=== PATIENT | male | born 2000 | race Caucasian/White ===

== ENCOUNTER 2019-07-26 14:01 | Emergency (ER) | payer BC ==
[2019-07-26 14:10] VITALS: BP 117/62; PULSE 88; RESP 18; TEMP 97.6
[2019-07-26] MEDS ORDERED: IBUPROFEN 600 MG TAB PO STA (14:22)
--- NOTE | 2019-07-26 14:38 | ED ---
General Adult HPI - General Chief complaint: Extremity Injury, Lower Stated complaint: Ankle injury Time Seen by Provider: 07/26/19 14:13 Source: patient, RN notes reviewed Mode of arrival: wheelchair Limitations: no limitations - History of Present Illness Initial comments: 19-year-old male presents to the emergency department for a chief complaint of ankle injury. Patient was playing basketball when he jumped up and landed his foot onto another player's foot. States he twisted his ankle. States he has a lot of swelling to the ankle and is concerned there might be a fracture. Denies any knee pain. Denies any foot pain.Patient has no other complaints at this time including shortness of breath, chest pain, abdominal pain, nausea or vomiting, headache, or visual changes. - Related Data Allergies Allergy/AdvReac Type Severity Reaction Status Date / Time No Known Allergies Allergy Verified 07/26/19 14:10 Review of Systems ROS Statement: Those systems with pertinent positive or pertinent negative responses have been documented in the HPI. ROS Other: All systems not noted in ROS Statement are negative. Past Medical History Past Medical History: No Reported History History of Any Multi-Drug Resistant Organisms: None Reported Past Surgical History: No Surgical Hx Reported Past Psychological History: No Psychological Hx Reported Smoking Status: Never smoker Past Alcohol Use History: None Reported Past Drug Use History: None Reported General Exam Limitations: no limitations General appearance: alert, in no apparent distress Head exam: Present: atraumatic, normocephalic, normal inspection Eye exam: Present: normal appearance, PERRL, EOMI. Absent: scleral icterus, conjunctival injection, periorbital swelling ENT exam: Present: normal exam, mucous membranes moist Neck exam: Present: normal inspection, full ROM. Absent: tenderness, meningismus, lymphadenopathy Respiratory exam: Present: normal lung sounds bilaterally. Absent: respiratory distress, wheezes, rales, rhonchi, stridor Cardiovascular Exam: Present: regular rate, normal rhythm, normal heart sounds. Absent: systolic murmur, diastolic murmur, rubs, gallop, clicks Extremities exam: Present: tenderness (There is tenderness noted of the lateral malleolus. No medial malleolus tenderness. No fifth metatarsal or navicular tenderness.), normal capillary refill (Capillary refill less than 2 seconds, DP pulse 2+ in the right lower extremity.), joint swelling (Patient has moderate localized edema of the lateral malleolus.), other (Sensation is intact in the right lower extremity.). Absent: full ROM (Patient has limited plantar and dorsiflexion secondary to pain of the right ankle. Patient is able to move all toes.), pedal edema, calf tenderness Course Vital Signs 07/26/19 14:07 Temperature 97.6 F Pulse Rate 88 Respiratory 18 Rate Blood Pressure 117/62 O2 Sat by Pulse 97 Oximetry Medical Decision Making - Medical Decision Making Neurovascular status is intact in the right lower extremity. Patient was initially unable to dorsi and plantar flex the right ankle due to pain. However was given Motrin and is now able to dorsi and plantar flex the right ankle. These mechanisms are intact. Sensation is intact. DP pulse is 2+. X-ray of the right foot and ankle shows mild soft tissue swelling. No acute fractures. Facet patient that if he continues to have pain after 7-10 days he may need repeat x-rays. Discussed Motrin and Tylenol for pain and swelling and rice therapy. Aircast was applied. Patient has crutches with him. He will follow up with orthopedics in one to 2 days and return if he has any worsening symptoms. Disposition Clinical Impression: Right ankle sprain Disposition: HOME SELF-CARE Condition: Good Instructions (If sedation given, give patient instructions): Ankle Sprain (ED) Additional Instructions: Please take Motrin and Tylenol for pain. Rest ice and elevate the right ankle. Use crutches and wear ankle brace. Follow-up with orthopedics in one to 2 days. Return to the emergency department if you have any worsening symptoms. You may need repeat x-rays in 7-10 days if symptoms do not resolve. Is patient prescribed a controlled substance at d/c from ED?: No Referrals: Moises Quinonez MD [Medical Doctor] - 1-2 days Time of Disposition: 14:59
--- NOTE | 2019-07-26 14:42 | XR ---
EXAMINATION TYPE: XR ankle complete RT DATE OF EXAM: 07/26/2019 COMPARISON: None HISTORY: Twisted ankle, pain TECHNIQUE: Three-view left ankle FINDINGS: Ankle mortise is intact. There is mild soft tissue swelling over the lateral malleolus. Sec ondary ossification centers inferior to the fibula. No acute fractures or dislocations are evident. IMPRESSION: 1. Mild soft tissue swelling lateral malleolus. 2. No acute displaced fractures. 3. Follow-up exam can be performed 7-10 days from acute trauma for continued pain.
--- NOTE | 2019-07-26 14:42 | XR ---
EXAMINATION TYPE: XR foot complete RT DATE OF EXAM: 07/26/2019 COMPARISON: None HISTORY: Pain TECHNIQUE: Three-view left foot FINDINGS: No acute fractures are evident. Joint spaces are preserved. Soft tissues are normal. Follow-up exams can be performed 7-10 days from acute trauma for continued pain. IMPRESSION: 1. Normal three-view right foot
== END 2019-07-26 15:15 | disposition home or self-care (01) ==
LOC: EC 14:01
DX: S93.401A Sprain of unspecified ligament of right ankle, initial encounter (principal); X50.1XXA Overexertion from prolonged static or awkward postures, initial encounter; Y93.67 Activity, basketball
CPT/HCPCS: 99283